=== PATIENT | female | born 1950 | race Caucasian/White ===

== ENCOUNTER 2022-12-24 07:16 | Inpatient (IN) | payer OTHER ==
[2022-12-24] VITALS (8 sets, daily range): BP systolic 149; BP diastolic 84; PULSE 64–86; RESP 18–24; TEMP 97.7; O2SAT 90–97
[~2022-12-24] VITALS: Ht 157.5 cm; Wt 57.2 kg
[2022-12-24] MEDS ORDERED: DexAMETHasone SOD PHOS 10MG/1ML VIAL INJ IV ONE (07:30)
[2022-12-24] MEDS ORDERED: ALBUTEROL SULF 2.5 MG/0.5ML(0.5%) NEB SOLN NEB ONE (07:45)
[2022-12-24 07:50] LABS: Basophils # (auto) 0 10 ^3/uL (0-0.2); Basophils % (auto) 0.5 % (0.0-2.0); Eosinophils # (auto) 0.1 10 ^3/uL (0-0.8); Eosinophils % (auto) 0.9 % (0.0-7.0); Hematocrit 42.8 % (36.0-46.0); Hemoglobin 14.5 g/dL (12.2-16.2); Lymphocytes # (auto) 1.4 10 ^3/uL (0.4-5.4); Mean Corpuscular Hemoglobin 34.4 pg (28.0-32.0); Mean Corpuscular Hgb Conc. 33.9 g/dL (32.0-36.0); Mean Corpuscular Volume 101.5 fL (80.0-100.0); Monocytes # (auto) 0.6 10 ^3/uL (0-1.3); Monocytes % (auto) 6.1 % (0.0-12.0); Neutrophils # (auto) 7.8 10 ^3/uL (1.6-8.6); Neutrophils % (auto) 78.5 % (37.0-80.0); Nucleated Red Blood Cells % 0.2 %; Red Blood Cells 4.22 10^6/uL (4.0-5.20); Red Cell Distribution Width 15.6 % (11.8-14.3); White Blood Cell 9.9 10^3/uL (4.4-10.8)
[2022-12-24 08:06] LABS: INR 0.99 (0.9-1.15); Partial Thromboplastin Time 24.9 SEC (24.5-34.5)
[2022-12-24 08:11] LABS: Albumin 3.5 g/dL (3.4-5.0); Calcium 8.7 mg/dL (8.5-10.1)
[2022-12-24 08:15] LABS: BUN/Creatinine Ratio 15.8 (10.0-20.0); Bilirubin, Total 0.4 mg/dL (0.2-1.0); Total Protein 6.7 g/dL (6.4-8.2)
[2022-12-24] MEDS ORDERED: ACETAMINOPHEN 325 MG TAB PO PRN (13:30)
[2022-12-24] MEDS ORDERED: ONDANSETRON HCL 4 MG/2 ML VIAL IV PRN (13:30)
[2022-12-24] MEDS: HYDROcodone-ACET 5/325MG TAB PO PRN (13:58)
[2022-12-24] MEDS: DexAMETHasone SOD PHOS 10MG/1ML VIAL INJ IV SCH ×2 (14:04→23:02)
[2022-12-24] MEDS: ALBUTEROL SULF 2.5 MG/0.5ML(0.5%) NEB SOLN NEB SCH ×3 (14:15→21:38)
[2022-12-24] MEDS: IPRATROPIUM BROM 0.5 MG/2.5ML INH SOL NEB SCH ×3 (14:15→21:38)
[2022-12-24] MEDS: MORPHINE SULFATE INJ 2 MG/ml SYRG IV PRN (20:53)
[2022-12-25] VITALS (19 sets, daily range): BP systolic 139–155; BP diastolic 70–86; PULSE 67–80; RESP 16–19; TEMP 36.8; O2SAT 92–98
[2022-12-25] MEDS: DexAMETHasone SOD PHOS 10MG/1ML VIAL INJ IV SCH ×3 (06:01→21:47)
[2022-12-25 06:12] LABS: Basophils # (auto) 0 10 ^3/uL (0-0.2); Basophils % (auto) 0.1 % (0.0-2.0); Eosinophils # (auto) 0 10 ^3/uL (0-0.8); Lymphocytes # (auto) 0.7 10 ^3/uL (0.4-5.4); Monocytes # (auto) 0.5 10 ^3/uL (0-1.3); Neutrophils % (auto) 86.7 % (37.0-80.0)
[2022-12-25] MEDS: IPRATROPIUM BROM 0.5 MG/2.5ML INH SOL NEB SCH ×5 (06:13→22:21)
[2022-12-25] MEDS: ALBUTEROL SULF 2.5 MG/0.5ML(0.5%) NEB SOLN NEB SCH ×5 (06:13→22:21)
[2022-12-25 06:15] LABS: Hematocrit 41.1 % (36.0-46.0); Hemoglobin 14.1 g/dL (12.2-16.2); Lymphocytes % (auto) 7.6 % (10.0-50.0); Mean Corpuscular Hemoglobin 34.7 pg (28.0-32.0); Mean Corpuscular Hgb Conc. 34.2 g/dL (32.0-36.0); Mean Corpuscular Volume 101.4 fL (80.0-100.0); Monocytes % (auto) 5.6 % (0.0-12.0); Neutrophils # (auto) 7.9 10 ^3/uL (1.6-8.6); Nucleated Red Blood Cells % 0.2 %; Red Blood Cells 4.05 10^6/uL (4.0-5.20); Red Cell Distribution Width 14.9 % (11.8-14.3); White Blood Cell 9.1 10^3/uL (4.4-10.8)
[2022-12-25] MEDS: ENOXAPARIN SOD 40 MG/0.4 ML SYRINGE SC SCH (09:54)
[2022-12-25] MEDS: HYDROcodone-ACET 5/325MG TAB PO PRN (12:59)
[2022-12-25] MEDS: MORPHINE SULFATE INJ 2 MG/ml SYRG IV PRN (21:48)
[2022-12-26] VITALS (9 sets, daily range): BP systolic 126–160; BP diastolic 57–86; PULSE 68–80; RESP 16–20; TEMP 97.6–97.7; O2SAT 93–99
[2022-12-26] MEDS ORDERED: PNEUMOCOCCAL VACC POLYS 25 MCG/0.5 ML VIAL IM ONE (03:30)
[2022-12-26] MEDS: DexAMETHasone SOD PHOS 10MG/1ML VIAL INJ IV SCH (05:37)
[2022-12-26] MEDS ORDERED: PANT40TA2 PO (05:44)
[2022-12-26] MEDS ORDERED: PROP60CA34 PO (05:44)
[2022-12-26] MEDS ORDERED: ATOR10TA52 PO (05:45)
[2022-12-26] MEDS ORDERED: FLUO60TA7 PO (05:45)
[2022-12-26] MEDS ORDERED: hydrALAZINE HCL 20 MG/ML VL IV ONE (06:00)
[2022-12-26] MEDS: ALBUTEROL SULF 2.5 MG/0.5ML(0.5%) NEB SOLN NEB SCH ×2 (07:03→10:30)
[2022-12-26] MEDS: IPRATROPIUM BROM 0.5 MG/2.5ML INH SOL NEB SCH ×2 (07:03→10:30)
[2022-12-26] MEDS: ENOXAPARIN SOD 40 MG/0.4 ML SYRINGE SC SCH (10:05)
== END 2022-12-26 12:52 | disposition home health service (06) | DRG 189 ==
LOC: EDBD 07:16 → ER 07:16 → OVERFLOW 13:33 → WEST WING 22:00
PROVIDERS: ADMIT Internal Medicine; ATTEND Internal Medicine
DX: J96.00 Acute respiratory failure, unspecified whether with hypoxia or hypercapnia (principal); J44.1 Chronic obstructive pulmonary disease with (acute) exacerbation; I10 Essential (primary) hypertension; F17.210 Nicotine dependence, cigarettes, uncomplicated; E78.5 Hyperlipidemia, unspecified; Z23 Encounter for immunization
CPT/HCPCS: 36415; 71045; 80053; 83880; 84484; 85025; 85610; 85730; 93005; 94640; 96374; 96375; 99291; G0378; J1100; J2405

== ENCOUNTER 2024-09-10 15:04 | Inpatient (IN) | payer OTHER ==
[~2024-09-10] VITALS: Ht 160 cm; Wt 65.4 kg
[~2024-09-10 15:04] MED LIST: ATOR10TA52 PO; FLUO60TA7 PO; PANT40TA2 PO; PROP60CA34 PO
--- NOTE | 2024-09-10 15:17 | ED.PDOC ---
GI ASSESSMENT HPI Comments 74-year-old female brought in by EMS presents with a chief complaint of GI bleed bleeding x 2 days. Patient mentions that her stool is black/red in color. And her vomit also had some black reddish discoloration. Patient denies using blood thinners. Patient is also reporting some nausea and vomiting, but patient is not actively vomiting at this time. Denies any diarrhea or abdominal pain. PMHx: COPD, HLD, HTN PSHx: Hip Surgery x 3 SHx: Denies HPI: Poor Historian. REVIEW OF SYSTEMS: CONSTITUTIONAL: Denies acute: fever, diaphoresis, chills, generalized weakness. HEAD: Denies acute: headache, photophobia Eyes: Denies acute: Double vision, vision loss, eye pain, eye discharge. EARS: Denies acute: tinnitus, hearing loss, ear discharge, ear pain, THROAT: Denies acute: sore throat, swelling, difficulty swallowing , pain with swallowing, change in voice. NECK: Denies acute: neck pain, neck swelling, stiff neck. HEART: Denies acute : chest pain, palpitations, LUNGS: Denies acute: SOB, wheezing, cough, hemoptysis ABDOMEN: Denies acute: abdominal pain, diarrhea, melena , hematemesis, hematochezia SKIN: Denies acute: rash, redness, lesions, itchiness. EXTREMITIES: Denies acute: calf pain, numbness, tingling, weakness, denies pain in extremity. Denies acute: Low back pain. Neuro: Denies acute: focal neurological deficit, motor or sensory focal neurological deficit, tremors, seizure like activity, confusion, dizziness, change in mental status, loss of bowel or bladder function, cauda equina like symptoms. : Denies acute: dysuria, hematuria, flank pain, increase in urinary frequency. PSYCH: Denies acute: hallucination, suicidal ideation, homicidal ideation. FEMALE: Denies acute: abnormal vaginal bleeding, foul odor, unusual discharge. PHYSICAL EXAM: General: no acute distress, awake and alert. Head: normocephalic, atraumatic. Neck: supple, trachea is midline, no swelling. Throat: Normal phonation. Eyes:, no erythema, no purulent discharge, no proptosis, no icterus. Heart: regular rate, regular rhythm, no significant murmur appreciated. Lungs: no apparent respiratory distress, Able to speak in full sentences. No wheezing, no rhonchi, no crackles. No stridors Clear to auscultation bilaterally. Abdomen: non tender to palpation, non distended, soft, no guarding, no rebound, + bowel sounds. Neuro: Awake, Alert, oriented to name, self, situation, follows commands GCS=15. Speech is normal. Skin: no petechia, no purpura, no cyanosis, non-pale, not jaundice. Lower extremities: --trace bilateral - Pitting edema no deformity, no focal swelling, no calf TTP. Makes eye contact. moves all four extremities. Face: no apparent facial droop. ED COURSE: Chief Complaint: Nausea/Vomiting Time Seen by MD: 15:07 Primary Care Provider: BARBIE ESCALANTE Reviewed Notes: Nurses Notes, Medications, Allergies Allergies: Coded Allergies: NO KNOWN ALLERGIES (Unverified , 12/24/22) Home Meds Reported Medications Fluoxetine HCl (Fluoxetine) 60 Mg Tab, PO, TAB 12/26/22 Atorvastatin Calcium (ATORVASTATIN CALCIUM) 10 Mg Tab, PO DAILY, #30 TAB 5 Refills 12/26/22 Pantoprazole Sodium Sesquihydr (Protonix) 40 Mg Tab, 40 MG PO DAILY, #30 TAB 12/26/22 Propranolol Hcl (Inderal La) 60 Mg Cap, 1 CAP PO DAILY, #90 CAP 1 Refill 12/26/22 Information Source: Patient Mode of Arrival: EMS Timing: Days Duration: Since onset Past Medical History PAST MEDICAL HISTORY: COPD, High Lipids, HTN Surgical History (Other): 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 Was a procedure done?: No GI differential Dx Differential Diagnosis: Other (Diverticulitis, colitis, fistula, neoplasm, hemorrhoids, anal fissures, constipation, Crohn's disease, ulcerative colitis, peptic ulcer disease, ) X-Ray, Labs, Meds, VS Vital Signs Date Time Temp Pulse Resp B/P (MAP) Pulse Ox O2 Delivery O2 Flow Rate FiO2 09/10/24 17:48 98.8 108 16 155/96 (115) 96 98.8 09/10/24 15:55 Room Air* 0 21 09/10/24 15:11 97 09/10/24 15:10 98.0 100 16 123/90 (101) 100 98.0 Lab Test 09/10/24 18:00 09/10/24 17:39 09/10/24 15:27 Range/Units Urine Color Light-yellow Yellow Urine Clarity Clear Clear Urine pH 6.5 5.0-9.0 Urine Specific [place] > 1.050 H 1.001-1.035 Urine Protein Trace H Negative Urine Ketones Trace Negative Urine Blood Negative Negative /uL Urine Nitrite Negative Negative Urine Bilirubin Negative Negative Urine Urobilinogen Normal Negative mg/dL Urine Leukocyte Esterase Negative Negative /uL Urine RBC 3 0 - 4 /hpf Urine Microscopic WBC 1 0-5 /HPF Urine Squamous Epithelial Cells Few <5 /hpf Urine Bacteria None seen None Seen /hpf Urine Glucose Normal Normal mg/dL Troponin I High Sensitivity 4 3 L </=34 ng/L White Blood Count 11.4 H 4.4-10.8 10^3/uL Red Blood Count 4.13 4.0-5.20 10^6/uL Hemoglobin 12.7 12.2-16.2 g/dL Hematocrit 38.7 36.0-46.0 % Mean Corpuscular Volume 93.7 80.0-100.0 fL Mean Corpuscular Hemoglobin 30.7 28.0-32.0 pg Mean Corpuscular Hemoglobin Concent 32.7 32.0-36.0 g/dL Red Cell Distribution Width 14.9 H 11.8-14.3 % Platelet Count 283 140-450 10^3/uL Mean Platelet Volume 7.9 6.9-10.8 fL Neutrophils (%) (Auto) 82.0 H 37.0-80.0 % Lymphocytes (%) (Auto) 11.0 10.0-50.0 % Monocytes (%) (Auto) 6.9 0.0-12.0 % Eosinophils (%) (Auto) 0.0 0.0-7.0 % Basophils (%) (Auto) 0.1 0.0-2.0 % Neutrophils # (Auto) 9.3 H 1.6-8.6 10 ^3/uL Lymphocytes # (Auto) 1.2 0.4-5.4 10 ^3/uL Monocytes # (Auto) 0.8 0-1.3 10 ^3/uL Eosinophils # (Auto) 0 0-0.8 10 ^3/uL Basophils # (Auto) 0 0-0.2 10 ^3/uL Nucleated Red Blood Cells 0.0 % Prothrombin Time 11.2 9.3-11.8 sec Prothrombin Time INR 1.06 0.9-1.15 Activated Partial Thromboplast Time 26.2 24.5-34.5 SEC Sodium Level 141 136-145 mmol/L Potassium Level 3.5 3.5-5.1 mmol/L Chloride Level 105 98-107 mmol/L Carbon Dioxide Level 23 20-31 mmol/L Anion Gap 13 5-15 Blood Urea Nitrogen 44 H 9-23 mg/dL Creatinine 0.77 0.550-1.02 mg/dL Glomerular Filtration Rate Calc 81 >90 mL/min BUN/Creatinine Ratio 57.1 H 10.0-20.0 Serum Glucose 135 H 74-106 mg/dL Lactic Acid Level 1.7 0.4-2.0 mmol/L Calcium Level 9.5 8.7-10.4 mg/dL Total Bilirubin 0.3 0.2-1.0 mg/dL Aspartate Amino Transferase (AST) 14 13-40 U/L Alanine Aminotransferase (ALT) 20 7-40 U/L Alkaline Phosphatase 81 46-116 U/L Total Protein 6.3 5.7-8.2 g/dL Albumin 4.3 3.2-4.8 g/dL Current Medications Medications (Trade) Dose Ordered Sig/Ambrose Route Start Time Stop Time Status Last Admin Pantoprazole Sodium (Protonix) 40 mg ONCE ONCE IV 09/10/24 15:30 09/10/24 15:31 DC 09/10/24 16:00 Sodium Chloride 1,000 ml @ 1,000 mls/hr Q1H ONCE IV 09/10/24 15:30 09/10/24 16:29 DC 09/10/24 16:00 Ondansetron HCl (Zofran) 8 mg ONCE ONCE IV 09/10/24 16:45 09/10/24 16:46 DC 09/10/24 17:52 PATIENT: YVES SIMONST: [id number]: [id number] : 1950 LOC: ER ROOM / BED: / AGE / SEX: 74 / F ADM STATUS: REG ER SERVICE 1527 ORDERING PHYSICIAN: ANDREY PIZANO DO PROCEDURE(s): ABPLIV - CT AB PEL WITH IV CON ONLY REASON: GI BLEED; N/V ORDER NUMBER(s): [id number], ACCESSION NUMBER(s): [id number] Exam: CT CT AB PEL WITH IV CON ONLY History: GI BLEED; N/V Comparison Study: None available TECHNIQUE: A digital roughener image was obtained. During the uneventful, intr avenous administration of contrast material, multislice data acquisition was obtained through the abdomen and pelvis. The data set was subsequently reconstructed into axial images. Images reviewed on a wrist examination is an examination of axial and multiplanar reformations using a variety of window levels and settings. RADIATION DOSE: DLP 500.96 mGy.cm; CTDI vol 10.36 mGy. Findings: Lungs: The lung bases are clear. Heart: No cardiomegaly or pericardial effusion. Liver: Unremarkable. Gallbladder: Unremarkable. Spleen: Unremarkable Pancreas: Unremarkable Adrenals: 2.0 x 1.2 cm right adrenal nodule. Kidneys: Subcentimeter hypodense lesions in the kidney which are too small to characterize. Left renal scarring. GI tract: Psfggifq-uk-zvqpc hiatal hernia. Unremarkable : Unremarkable. Vasculature: Mild aortoiliac atherosclerosis. Lymphadenopathy: Absent Peritoneum: No ascites Musculoskeletal: Severe multilevel degenerative changes of the thoracolumbar spine. Severe compression fracture of T11. Moderate compression fractures of T12, L1 and L4. No retropulsion. Right total hip arthroplasty. Soft tissues: Unremarkable Impression: 1. No acute abdominopelvic abnormalities. 2. No definite evidence of GI hemorrhage. Consider further evaluation with a nuclear medicine GI bleeding scan. 3. 2.0 x 1.2 cm right adrenal nodule. Consider further evaluation as an adrenal protocol CT, as clinically indicated. 4. Other non-acute, ancillary findings as described above. ATED BY: MAXINE MENDOZA DO DICTATED DATE/TIME: 09/10/241801 SIGNED BY: MAXINE MENDOZA DO SIGNED DATE/TIME: 09/10/241801 PATIENT: OMER SIMONS ACCT: [id number] UNIT: [id number] : 1950 LOC: OVERFLOW ROOM / BED: [address] [place] [address] / AGE / SEX: 74 / F ADM STATUS: ADM IN SERVICE 47 ORDERING PHYSICIAN: VIVIANA TINAJERO VP OUTCOMES PROCEDURE(s): CXRP - CHEST PORTABLE REASON: admit ORDER NUMBER(s): [id number], ACCESSION NUMBER(s): [id number] EXAM: XY CHEST PORTABLE TECHNIQUE: Single frontal chest radiograph CLINICAL HISTORY: admit COMPARISON: XY CHEST PORTABLE on DOS: 12/24/22 Findings/Impression: Frontal chest radiograph demonstrates no acute osseous or superficial soft tiss ue abnormalities. The trachea is midline. The cardiac silhouette and mediastinum are within normal limits. No pneumothorax, pleural effusions, or consolidations. Moderate hiatal hernia. ATED BY: MAXINE MENDOZA DO DICTATED DATE/TIME: 09/10/242017 SIGNED BY: MAXINE MENDOZA DO SIGNED DATE/TIME: 09/10/242017 Time of 1ST Reevaluation: 15:37 Reevaluation 1ST: Unchanged Time of 2ND Reevaluation: 18:00 (The case was discussed with the admitting team (HPI, physical exam, labs and diagnostic tests that were available at the time of disposition, ED course, treatment plan) on the phone. They agreed to admit the patient to their service and assume care of this patient from this point forward. .) Patient Education/Counseling: Diagnosis, Treatment Family Education/Counseling: No Family Present Departure 1 Departure Time of Disposition: 16:02 Impression: Primary Impression: GI bleed Qualified Codes: K92.0 - Hematemesis Additional Impressions: Nausea & vomiting Qualified Codes: K92.0 - Hematemesis Hiatal hernia Disposition: ADMITTED INPATIENT Admit to: Tele Condition: Guarded Discharged With: Self Critical Care Note Critical Care Time?: No I personally scribed for ANDREY PIZANO DO ([email or web address]) on 09/10/24 at 15:16. Electronically submitted by Derick Mccormick ([email or web address]). I personally scribed for ANDREY PIZANO DO ([email or web address]) on 09/10/24 at 15:20. Electronically submitted by Derick Mccormick ([email or web address]). I personally scribed for ANDREY PIZANO DO ([email or web address]) on 09/10/24 at 15:28. Electronically submitted by Derick Mccormick ([email or web address]). I personally scribed for ANDREY PIZANO DO ([email or web address]) on 09/10/24 at 20:23. Electronically submitted by Derick Mccormick ([email or web address]). I personally scribed for ANDREY PIZANO DO ([email or web address]) on 09/10/24 at 20:24. Electronically submitted by Derick Mccormick ([email or web address]). ANDREY PIZANO DO Sep 10, 2024 15:16
[2024-09-10 15:54] LABS: Basophils # (auto) 0 10 ^3/uL (0-0.2); Basophils % (auto) 0.1 % (0.0-2.0); Eosinophils # (auto) 0 10 ^3/uL (0-0.8); Hematocrit 38.7 % (36.0-46.0); Hemoglobin 12.7 g/dL (12.2-16.2); Lymphocytes # (auto) 1.2 10 ^3/uL (0.4-5.4); Mean Corpuscular Hemoglobin 30.7 pg (28.0-32.0); Mean Corpuscular Hgb Conc. 32.7 g/dL (32.0-36.0); Mean Corpuscular Volume 93.7 fL (80.0-100.0); Monocytes # (auto) 0.8 10 ^3/uL (0-1.3); Monocytes % (auto) 6.9 % (0.0-12.0); Neutrophils # (auto) 9.3 10 ^3/uL (1.6-8.6); Platelet Count (auto) 283 10^3/uL (140-450); Red Blood Cells 4.13 10^6/uL (4.0-5.20); Red Cell Distribution Width 14.9 % (11.8-14.3); White Blood Cell 11.4 10^3/uL (4.4-10.8)
[2024-09-10] MEDS: SODIUM CHLORIDE 0.9% 1,000 ML IV ONE (16:00)
[2024-09-10] MEDS: PANTOPRAZOLE 40 MG/10 ML VIAL INJ IV ONE (16:00)
[2024-09-10 16:13] LABS: Alanine Aminotransferase 20 U/L (7-40); Albumin 4.3 g/dL (3.2-4.8); Alkaline Phosphatase 81 U/L (46-116); Anion Gap 13 (5-15); Aspartate Aminotransferase 14 U/L (13-40); BUN/Creatinine Ratio 57.1 (10.0-20.0); Calcium 9.5 mg/dL (8.7-10.4); Carbon Dioxide 23 mmol/L (20-31); Chloride 105 mmol/L (98-107); Sodium 141 mmol/L (136-145); Total Protein 6.3 g/dL (5.7-8.2)
[2024-09-10 16:14] LABS: Bilirubin, Total 0.3 mg/dL (0.2-1.0)
[2024-09-10 16:15] LABS: Blood Urea Nitrogen 44 mg/dL (9-23); Glucose 135 mg/dL (74-106); Potassium 3.5 mmol/L (3.5-5.1)
[2024-09-10 16:27] LABS: INR 1.06 (0.9-1.15); Partial Thromboplastin Time 26.2 SEC (24.5-34.5); Prothrombin Time 11.2 sec (9.3-11.8)
[2024-09-10] MEDS: IOHEXOL 300 MG/ML 100ML BOTTLE IJ ONE (17:18)
[2024-09-10] MEDS: ONDANSETRON HCL 4 MG/2 ML VIAL IV ONE (17:52)
--- NOTE | 2024-09-10 18:04 | DVH ---
Exam: CT CT AB PEL WITH IV CON ONLY History: GI BLEED; N/V Comparison Study: None available TECHNIQUE: A digital machine binding folder image was obtained. During the uneventful, intravenous administration of c ontrast material, multislice data acquisition was obtained through the abdomen and pelvis. The data s et was subsequently reconstructed into axial images. Images reviewed on a wrist examination is an exa mination of axial and multiplanar reformations using a variety of window levels and settings. RADIATION DOSE: DLP 500.96 mGy.cm; CTDI vol 10.36 mGy. Findings: Lungs: The lung bases are clear. Heart: No cardiomegaly or pericardial effusion. Liver: Unremarkable. Gallbladder: Unremarkable. Spleen: Unremarkable Pancreas: Unremarkable Adrenals: 2.0 x 1.2 cm right adrenal nodule. Kidneys: Subcentimeter hypodense lesions in the kidney which are too small to characterize. Left jessica l scarring. GI tract: Sajjwfie-vq-osqnl hiatal hernia. Unremarkable : Unremarkable. Vasculature: Mild aortoiliac atherosclerosis. Lymphadenopathy: Absent Peritoneum: No ascites Musculoskeletal: Severe multilevel degenerative changes of the thoracolumbar spine. Severe compressi on fracture of T11. Moderate compression fractures of T12, L1 and L4. No retropulsion. Right total hi p arthroplasty. Soft tissues: Unremarkable Impression: 1. No acute abdominopelvic abnormalities. 2. No definite evidence of GI hemorrhage. Consider further evaluation with a nuclear medicine GI ble eding scan. 3. 2.0 x 1.2 cm right adrenal nodule. Consider further evaluation as an adrenal protocol CT, as clin ically indicated. 4. Other non-acute, ancillary findings as described above.
[2024-09-10 18:40] LABS: Urine Bacteria None Seen /hpf (None Seen)
[2024-09-10 18:52] LABS: Urine Blood Negative /uL (Negative); Urine Clarity Clear (Clear); Urine Color Light-Yellow (Yellow); Urine Protein, UAD TRACE (Negative); Urine Squamous Epithelial Cell FEW /hpf (<5); Urine Urobilinogen Normal (Negative); Urine WBC 1 /HPF (0-5); Urine pH 6.5 (5.0-9.0)
[2024-09-10 18:56] LABS: Urine Specific Gravity > 1.050 (1.001-1.035)
--- NOTE | 2024-09-10 20:20 | DVH ---
EXAM: XY CHEST PORTABLE TECHNIQUE: Single frontal chest radiograph CLINICAL HISTORY: admit COMPARISON: XY CHEST PORTABLE on DOS: 12/24/22 Findings/Impression: Frontal chest radiograph demonstrates no acute osseous or superficial soft tissue abnormalities. The trachea is midline. The cardiac silhouette and mediastinum are within normal limits. No pneumothorax, pleural effusions, or consolidations. Moderate hiatal hernia.
[2024-09-10] MEDS: PANTOPRAZOLE 40mg/50ML NS AE 50 ML IV SCH (20:35)
[2024-09-10] MEDS: SODIUM CHLORIDE 0.9% 1,000 ML IV SCH (20:35)
[2024-09-10] MEDS: ONDANSETRON HCL 4 MG/2 ML VIAL IV PRN (20:35)
[2024-09-10 20:43] LABS: Hematocrit 37.6 % (36.0-46.0); Hemoglobin 12.3 g/dL (12.2-16.2)
[2024-09-10 21:51] VITALS: BP 149/83; PULSE 104; RESP 16; TEMP 97.7; O2SAT 94
[2024-09-10] MEDS ORDERED: PROP60CA34 PO (22:25)
[2024-09-10] MEDS ORDERED: FLUT1AER17 IN (22:25)
[2024-09-10] MEDS ORDERED: SIMV10TA20 PO (22:25)
[2024-09-10 23:23] VITALS: BP 149/83; PULSE 104; RESP 18; TEMP 97.7; O2SAT 94
[2024-09-11] VITALS (7 sets, daily range): BP systolic 125–159; BP diastolic 53–76; PULSE 63–73; RESP 16–21; TEMP 97.6–98.5; O2SAT 92–96
[2024-09-11 00:39] LABS: Hematocrit 30.9 % (36.0-46.0); Hemoglobin 10.6 g/dL (12.2-16.2)
--- NOTE | 2024-09-11 00:44 | DVHHP2 ---
Admitting Diagnosis: GI bleed History of Present Illness History Source: Patient Exam Limitations: No limitations HPI Mrs. Kailey Robledo is a 74-year-old female with a history of COPD, HLD, hypertension who presents with a chief complaint of GI bleed bleeding x 2 days. Patient mentions that her stool is black/red in color. And her vomit also had some black reddish discoloration. Patient denies using blood thinners. Patient reports loose dark tarry stools x 2 days. Denies any diarrhea , nausea, vomiting or abdominal pain at this time. Home Meds Reported Medications Gxjetmbcjci-Wvbxmzheazbt-Osyhp (Trelegy Ellipta 200-62.5-25 Mcg/INH) 1 Aer Aer, 1 AER IN DAILY, AER 09/10/24 Simvastatin (Simvastatin) 10 Mg Tab, 10 MG PO DAILY for 30 Days, MG 09/10/24 Propranolol Hcl (Inderal La) 60 Mg Cap, 20 MG PO BID, CAP 09/10/24 Fluoxetine HCl (Fluoxetine) 60 Mg Tab, PO, TAB 12/26/22 Discontinued Reported Medications Atorvastatin Calcium (ATORVASTATIN CALCIUM) 10 Mg Tab, PO DAILY, #30 TAB 5 Refills 12/26/22 Pantoprazole Sodium Sesquihydr (Protonix) 40 Mg Tab, 40 MG PO DAILY, #30 TAB 12/26/22 Propranolol Hcl (Inderal La) 60 Mg Cap, 1 CAP PO DAILY, #90 CAP 1 Refill 12/26/22 Past Medical History Cardiac: HTN, Hyperlipidemia Pulmonary: COPD Central Nervous System: No pertinent Hx GI: No pertinent Hx Hemotology/Oncology: No pertinent Hx Hepatobiliary: No pertinent Hx Psychiatric: No pertinent Hx Musculoskeletal: No pertinent Hx Rheumotologic: No pertinent Hx Infectious Disease: No peritnent Hx ENT: No pertinent Hx Renal/: No pertinent Hx Endocrine: No pertinent Hx Dermatology: No pertinent Hx Patient Family History: Patient reports no known family medical history. Smoker: No Hx (Negative) Alocohol: None Drugs: None Lives with: With family Domestic Violence: Neg Review of Systems Constitutional: No symptom reported Ears, Nose, & Throat: No symptom reported Eyes: No symptom reported Pulmonary/Respiratory: No symptom reported Cardiovascular: No symptom reported Gastrointestinal: Melena Genitourinary: No symptom reported Musculoskeletal: No symptom reported Skin: No symptom reported Psychiatric: No symptom reported Endocrine: No symptom reported Hemotologic/Lymphatic: No symptom reported H&P Exam Vital Signs Vital Signs Date Time Temp Pulse Resp B/P (MAP) Pulse Ox O2 Delivery O2 Flow Rate FiO2 09/10/24 23:23 104 18 94 Room Air* 0 21 09/10/24 23:23 97.7 149/83 (105) 97.7 General Appeara: Well developed, Well nourished, Normal Appearance Head Exam: Normal inspection Neck Exam: Normal inspection, Non-tender, Normal alignment Eye Exam: bilateral eye Normal inspection, bilateral eye PERRL, bilateral eye EOMI Ear Exam: bilateral ear Auricle normal Nasal Exam: Normal inspection Mouth: Normal Inspection Pulmonary/Respiratory: Normal inspection, Normal breath sounds, Chest non- tender, Lungs clear Cardiovascular/Chest: Normal inspection, Regular rate, Normal Rhythm Peripheral Pulses: 2+ dorsalis pedis (R), 2+ dorsalis pedis (L), 2+ Radial (R), 2+ Radial (L) Abdominal Exam: Normal bowel sounds, Soft, No tenderness Rectal Exam: Deferred 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: Normal hearing, Normal speech, PERRL Neuro/Mental St: Alert, Oriented Appearance: Appropriate appearance, Appropriate insight Eye contact/ Speech: Cooperative, Good eye contact, Normal speech Thoughts/Psych: Normal thought pattern Skin Exam: Normal inspection, Normal color, Warm/dry Labs/Xrays Labs Test 09/11/24 00:25 09/10/24 18:00 09/10/24 17:39 09/10/24 15:27 Range/Units Urine Color Light-yellow Yellow Urine Clarity Clear Clear Urine pH 6.5 5.0-9.0 Urine Specific [place] > 1.050 H 1.001-1.035 Urine Protein Trace H Negative Urine Ketones Trace Negative Urine Blood Negative Negative /uL Urine Nitrite Negative Negative Urine Bilirubin Negative Negative Urine Urobilinogen Normal Negative mg/dL Urine Leukocyte Esterase Negative Negative /uL Urine RBC 3 0 - 4 /hpf Urine Microscopic WBC 1 0-5 /HPF Urine Squamous Epithelial Cells Few <5 /hpf Urine Bacteria None seen None Seen /hpf Urine Glucose Normal Normal mg/dL Troponin I High Sensitivity 4 </=34 ng/L White Blood Count 11.4 H 4.4-10.8 10^3/uL Red Blood Count 4.13 4.0-5.20 10^6/uL Mean Corpuscular Volume 93.7 80.0-100.0 fL Mean Corpuscular Hemoglobin 30.7 28.0-32.0 pg Mean Corpuscular Hemoglobin Concent 32.7 32.0-36.0 g/dL Red Cell Distribution Width 14.9 H 11.8-14.3 % Platelet Count 283 140-450 10^3/uL Mean Platelet Volume 7.9 6.9-10.8 fL Neutrophils (%) (Auto) 82.0 H 37.0-80.0 % Lymphocytes (%) (Auto) 11.0 10.0-50.0 % Monocytes (%) (Auto) 6.9 0.0-12.0 % Eosinophils (%) (Auto) 0.0 0.0-7.0 % Basophils (%) (Auto) 0.1 0.0-2.0 % Neutrophils # (Auto) 9.3 H 1.6-8.6 10 ^3/uL Lymphocytes # (Auto) 1.2 0.4-5.4 10 ^3/uL Monocytes # (Auto) 0.8 0-1.3 10 ^3/uL Eosinophils # (Auto) 0 0-0.8 10 ^3/uL Basophils # (Auto) 0 0-0.2 10 ^3/uL Nucleated Red Blood Cells 0.0 % Prothrombin Time 11.2 9.3-11.8 sec Prothrombin Time INR 1.06 0.9-1.15 Activated Partial Thromboplast Time 26.2 24.5-34.5 SEC Sodium Level 141 136-145 mmol/L Potassium Level 3.5 3.5-5.1 mmol/L Chloride Level 105 98-107 mmol/L Carbon Dioxide Level 23 20-31 mmol/L Anion Gap 13 5-15 Blood Urea Nitrogen 44 H 9-23 mg/dL Creatinine 0.77 0.550-1.02 mg/dL Glomerular Filtration Rate Calc 81 >90 mL/min BUN/Creatinine Ratio 57.1 H 10.0-20.0 Serum Glucose 135 H 74-106 mg/dL Lactic Acid Level 1.7 0.4-2.0 mmol/L Calcium Level 9.5 8.7-10.4 mg/dL Total Bilirubin 0.3 0.2-1.0 mg/dL Aspartate Amino Transferase (AST) 14 13-40 U/L Alanine Aminotransferase (ALT) 20 7-40 U/L Alkaline Phosphatase 81 46-116 U/L Total Protein 6.3 5.7-8.2 g/dL Albumin 4.3 3.2-4.8 g/dL Assessment/Plan Problem List: (1) GI bleed Plan This is a 74 yo female with a past known history of COPD, hyperlipidemia, hypertension, who presents to the hospital with dark tarry stools x 2 days. 1. GI Bleed 2. Hypertension 3. COPD without exacerbation Plan: Admit Telemetry unit Gastroenterology consultation Protonix drip IV fluids NPO stool occult blood x2 antiemetics as needed Discussed all above with patient who verbalizes agreement and understanding of care plan. All questions were answered. Discussed assessment and care plan with supervising MD. Plan discussed with: Patient, Other Code Visit Code Visit Total Time (mins): 45 Additional Comments Additional Comments Additional Comments 74-year-old female with a known history of COPD, history of tobacco use disorder 40 pack-year history quit two years ago, hypertension initially presented to the hospital with a black stool as well as hematemesis with a black stuff found to have 1. Acute anemia with suspected GI bleed 2. Black tarry stools rule out upper GI bleed 3. COPD not in exacerbation 4. Previous history of tobacco use disorder -monitor H&H, check stool for occult blood test, GI consultation -continue Protonix drip. VIVIANA TINAJERO Sep 11, 2024 00:44 RACHEL HUDSON MD Sep 11, 2024 15:56
[2024-09-11] MEDS: diphenhdrAMINE HCL 50 MG/1 ML VL IV ONE (00:51)
[2024-09-11 07:55] LABS: Basophils # (auto) 0 10 ^3/uL (0-0.2); Basophils % (auto) 0.1 % (0.0-2.0); Eosinophils # (auto) 0 10 ^3/uL (0-0.8); Hemoglobin 9.9 g/dL (12.2-16.2); Lymphocytes # (auto) 1.2 10 ^3/uL (0.4-5.4); Lymphocytes % (auto) 14.7 % (10.0-50.0); Mean Corpuscular Hemoglobin 32.4 pg (28.0-32.0); Mean Corpuscular Hgb Conc. 34.3 g/dL (32.0-36.0); Mean Corpuscular Volume 94.5 fL (80.0-100.0); Monocytes # (auto) 0.7 10 ^3/uL (0-1.3); Monocytes % (auto) 9.4 % (0.0-12.0); Neutrophils % (auto) 75.8 % (37.0-80.0); Nucleated Red Blood Cells % 0.1 %; Platelet Count (auto) 213 10^3/uL (140-450); Red Blood Cells 3.07 10^6/uL (4.0-5.20); Red Cell Distribution Width 14.8 % (11.8-14.3); White Blood Cell 7.9 10^3/uL (4.4-10.8)
[2024-09-11 08:07] LABS: Sodium 142 mmol/L (136-145)
[2024-09-11 08:08] LABS: Anion Gap 10 (5-15); Calcium 8.7 mg/dL (8.7-10.4); Carbon Dioxide 22 mmol/L (20-31)
[2024-09-11 08:12] LABS: Chloride 110 mmol/L (98-107); Potassium 3.3 mmol/L (3.5-5.1)
[2024-09-11 08:13] LABS: BUN/Creatinine Ratio 36.6 (10.0-20.0); Glucose 104 mg/dL (74-106)
[2024-09-11 08:16] LABS: Blood Urea Nitrogen 26 mg/dL (9-23)
[2024-09-11 12:26] LABS: Hematocrit 29.3 % (36.0-46.0); Hemoglobin 9.8 g/dL (12.2-16.2)
[2024-09-11 18:47] LABS: Hematocrit 30.8 % (36.0-46.0); Hemoglobin 10.1 g/dL (12.2-16.2)
[2024-09-11] MEDS: ATORVASTATIN 20 MG TAB PO SCH (21:13)
[2024-09-11] MEDS: PROPRANOLOL HCL 20 MG TAB PO SCH (21:14)
[2024-09-11] MEDS: traZODone HCL 50 MG TAB PO PRN (21:16)
[2024-09-12] VITALS (7 sets, daily range): BP systolic 106–118; BP diastolic 54–62; PULSE 64–74; RESP 16–19; TEMP 97.6–98; O2SAT 91–93
[2024-09-12 06:40] LABS: Basophils # (auto) 0 10 ^3/uL (0-0.2); Basophils % (auto) 0.2 % (0.0-2.0); Eosinophils # (auto) 0 10 ^3/uL (0-0.8); Eosinophils % (auto) 0.4 % (0.0-7.0); Hematocrit 27.4 % (36.0-46.0); Hemoglobin 9.1 g/dL (12.2-16.2); Lymphocytes % (auto) 14.8 % (10.0-50.0); Mean Corpuscular Hemoglobin 31.6 pg (28.0-32.0); Mean Corpuscular Hgb Conc. 33.1 g/dL (32.0-36.0); Mean Corpuscular Volume 95.2 fL (80.0-100.0); Monocytes # (auto) 0.5 10 ^3/uL (0-1.3); Monocytes % (auto) 7.8 % (0.0-12.0); Neutrophils # (auto) 5.2 10 ^3/uL (1.6-8.6); Neutrophils % (auto) 76.8 % (37.0-80.0); Nucleated Red Blood Cells % 0.1 %; Platelet Count (auto) 186 10^3/uL (140-450); Red Blood Cells 2.88 10^6/uL (4.0-5.20); Red Cell Distribution Width 14.8 % (11.8-14.3); White Blood Cell 6.7 10^3/uL (4.4-10.8)
[2024-09-12 06:48] LABS: Anion Gap 11 (5-15); Sodium 145 mmol/L (136-145)
[2024-09-12 06:52] LABS: Calcium 8.4 mg/dL (8.7-10.4); Carbon Dioxide 19 mmol/L (20-31); Chloride 115 mmol/L (98-107); Potassium 3.4 mmol/L (3.5-5.1)
[2024-09-12 06:54] LABS: BUN/Creatinine Ratio 24.1 (10.0-20.0); Blood Urea Nitrogen 14 mg/dL (9-23)
[2024-09-12 06:55] LABS: Glucose 72 mg/dL (74-106)
--- NOTE | 2024-09-12 14:41 | DVHPN2 ---
Subjective Patient is complaining of some black stool one episode yesterday. Currently hemoglobin is 9.1 as compared to 10.1 yesterday. Patient will be watched closely on tele monitor. 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 Medications Current Medications Medications Dose Ordered Sig/Ambrose Route Start Time Stop Time Status Last Admin Dose Admin Pantoprazole Sodium 50 ml @ 10 mls/hr Q5H IV 09/10/24 19:30 09/12/24 11:03 10 MLS/HR Sodium Chloride 1,000 ml @ 75 mls/hr [id number] IV 09/10/24 19:30 09/12/24 11:03 75 MLS/HR Ondansetron HCl 4 mg Q6HPRN PRN IV 09/10/24 19:30 09/10/24 20:35 4 MG Propranolol HCl 20 mg BID PO 09/11/24 22:00 09/12/24 11:03 20 MG Trazodone HCl 25 mg HS PRN PO 09/11/24 14:45 09/11/24 21:16 25 MG Atorvastatin Calcium 10 mg HS PO 09/11/24 22:00 09/11/24 21:13 10 MG Laboratory Results Laboratory Tests 09/12/24 05:46 Chemistry Test 09/12/24 05:46 Calcium Level 8.4 mg/dL (8.7-10.4) L Urinalysis Test 09/10/24 18:00 Urine Color Light-yellow (Yellow) Urine Clarity Clear (Clear) Urine pH 6.5 (5.0-9.0) Urine Specific [place] > 1.050 (1.001-1.035) Urine Protein Trace (Negative) H Urine Ketones Trace (Negative) Urine Blood Negative /uL (Negative) Urine Nitrite Negative (Negative) Urine Bilirubin Negative (Negative) Urine Urobilinogen Normal mg/dL (Negative) Urine Leukocyte Esterase Negative /uL (Negative) Urine RBC 3 /hpf (0 - 4) Urine Microscopic WBC 1 /HPF (0-5) Urine Squamous Epithelial Cells Few /hpf (<5) Urine Bacteria None seen /hpf (None Seen) Urine Glucose Normal mg/dL (Normal) Assessment/Plan Assessment/Plan 74-year-old female with a known history of COPD, history of tobacco use disorder 40 pack-year history quit two years ago, hypertension initially presented to the hospital with a black stool as well as hematemesis with a black stuff found to have 1. Acute anemia with suspected GI bleed 2. Black tarry stools rule out upper GI bleed 3. COPD not in exacerbation 4. Previous history of tobacco use disorder -IV fluids, IV Protonix drip, NPO , for possible EGD tomorrow. Plan discussed with: Patient My Orders Orders - RACHEL HUDSON MD Procedure Category Date Status Time Propranolol Hcl PHA 09/11/24 In Process Tablet (Inderal 22:00 Trazodone Hcl PHA 09/11/24 In Process (Desyrel) 14:45 Atorvastatin (Lipitor) PHA 09/11/24 In Process 22:00 Basic Metabolic Panel LAB 09/13/24 Verified 04:00 Date of Service: Sep 12, 2024 Billing Provider: RACHEL HUDSON MD Common Visit Codes: NOT BILLABLE RACHEL HUDSON MD Sep 12, 2024 14:41
[2024-09-12] MEDS: POTASSIUM EFFERVESENT TAB 25 MEQ PO ONE (14:57)
--- NOTE | 2024-09-12 15:27 | DVHINCON2 ---
Date of service: Sep 12, [address] Oliveros Reason for Consultation Coffee-ground emesis and melena History of Present Illness Mrs. Kailey Robledo is a 74-year-old female with a history of COPD, HLD, hypertension who presents with a chief complaint of GI bleed bleeding x 2 days. Patient mentions that her stool is black/red in color. And her vomit also had some black reddish discoloration. Patient denies using blood thinners. Patient did recently take some ibuprofen. Patient reports loose dark tarry stools x 2 days. Denies any diarrhea , nausea, vomiting or abdominal pain at this time. Her last endoscopy was over 10 years ago. Her last colonoscopy was about seven years ago which she believes was negative. Patient was seen at bedside and she is resting comfortably. Her bleeding appears to be resolving and her laboratory parameters are improving Past Medical History COPD, HLD, hypertension Past Surgical History Right hip replacement x2 Family History: Cerebrovascular accident (CVA) G8 FATHER Allergies: Coded Allergies: NO KNOWN ALLERGIES (Unverified , 12/24/22) Home Meds Reported Medications Rezzfkwthpa-Tctvdpfxmnfv-Exucp (Trelegy Ellipta 200-62.5-25 Mcg/INH) 1 Aer Aer, 1 AER IN DAILY, AER 09/10/24 Simvastatin (Simvastatin) 10 Mg Tab, 10 MG PO DAILY for 30 Days, MG 09/10/24 Propranolol Hcl (Inderal La) 60 Mg Cap, 20 MG PO BID, CAP 09/10/24 Fluoxetine HCl (Fluoxetine) 60 Mg Tab, PO, TAB 12/26/22 Discontinued Reported Medications Atorvastatin Calcium (ATORVASTATIN CALCIUM) 10 Mg Tab, PO DAILY, #30 TAB 5 Refills 12/26/22 Pantoprazole Sodium Sesquihydr (Protonix) 40 Mg Tab, 40 MG PO DAILY, #30 TAB 12/26/22 Propranolol Hcl (Inderal La) 60 Mg Cap, 1 CAP PO DAILY, #90 CAP 1 Refill 12/26/22 Current Medications Current Medications Medications (Trade) Dose Ordered Sig/Ambrose Route PRN Reason Start Time Stop Time Status Last Admin Propranolol HCl (Inderal Tablet) 20 mg BID PO 09/11/24 22:00 09/12/24 11:03 Atorvastatin Calcium (Lipitor) 10 mg HS PO 09/11/24 22:00 09/11/24 21:13 Vital Signs Vital Signs Date Time Temp Pulse Resp B/P (MAP) Pulse Ox O2 Delivery O2 Flow Rate FiO2 09/12/24 13:00 97.9 64 19 116/57 (76) 92 97.9 09/12/24 08:00 Room Air* 0 21 Physical Exam HEENT pupils are reactive Neck is supple CV is S1-S2 regular rate and rhythm Respiratory diminished breath sounds bases GI positive bowel sound Extremity no edema [employer] no motor deficit Labs/Diagnostic Data Labs Test 09/12/24 05:46 09/11/24 15:22 09/10/24 18:00 09/10/24 17:39 Range/Units White Blood Count 6.7 4.4-10.8 10^3/uL Red Blood Count 2.88 L 4.0-5.20 10^6/uL Hemoglobin 9.1 L 12.2-16.2 g/dL Hematocrit 27.4 #L 36.0-46.0 % Mean Corpuscular Volume 95.2 80.0-100.0 fL Mean Corpuscular Hemoglobin 31.6 28.0-32.0 pg Mean Corpuscular Hemoglobin Concent 33.1 32.0-36.0 g/dL Red Cell Distribution Width 14.8 H 11.8-14.3 % Platelet Count 186 140-450 10^3/uL Mean Platelet Volume 7.8 6.9-10.8 fL Neutrophils (%) (Auto) 76.8 37.0-80.0 % Lymphocytes (%) (Auto) 14.8 10.0-50.0 % Monocytes (%) (Auto) 7.8 0.0-12.0 % Eosinophils (%) (Auto) 0.4 0.0-7.0 % Basophils (%) (Auto) 0.2 0.0-2.0 % Neutrophils # (Auto) 5.2 1.6-8.6 10 ^3/uL Lymphocytes # (Auto) 1.0 0.4-5.4 10 ^3/uL Monocytes # (Auto) 0.5 0-1.3 10 ^3/uL Eosinophils # (Auto) 0 0-0.8 10 ^3/uL Basophils # (Auto) 0 0-0.2 10 ^3/uL Nucleated Red Blood Cells 0.1 % Sodium Level 145 136-145 mmol/L Potassium Level 3.4 L 3.5-5.1 mmol/L Chloride Level 115 H 98-107 mmol/L Carbon Dioxide Level 19 L 20-31 mmol/L Anion Gap 11 5-15 Blood Urea Nitrogen 14 # 9-23 mg/dL Creatinine 0.58 0.550-1.02 mg/dL Glomerular Filtration Rate Calc 95 >90 mL/min BUN/Creatinine Ratio 24.1 H 10.0-20.0 Serum Glucose 72 L 74-106 mg/dL Calcium Level 8.4 L 8.7-10.4 mg/dL Stool Occult Blood Positive Negative Stool Occult Blood Sample #3 Negative Urine Color Light-yellow Yellow Urine Clarity Clear Clear Urine pH 6.5 5.0-9.0 Urine Specific [place] > 1.050 H 1.001-1.035 Urine Protein Trace H Negative Urine Ketones Trace Negative Urine Blood Negative Negative /uL Urine Nitrite Negative Negative Urine Bilirubin Negative Negative Urine Urobilinogen Normal Negative mg/dL Urine Leukocyte Esterase Negative Negative /uL Urine RBC 3 0 - 4 /hpf Urine Microscopic WBC 1 0-5 /HPF Urine Squamous Epithelial Cells Few <5 /hpf Urine Bacteria None seen None Seen /hpf Urine Glucose Normal Normal mg/dL Troponin I High Sensitivity 4 </=34 ng/L Test 09/10/24 15:27 Range/Units Prothrombin Time 11.2 9.3-11.8 sec Prothrombin Time INR 1.06 0.9-1.15 Activated Partial Thromboplast Time 26.2 24.5-34.5 SEC Lactic Acid Level 1.7 0.4-2.0 mmol/L Total Bilirubin 0.3 0.2-1.0 mg/dL Aspartate Amino Transferase (AST) 14 13-40 U/L Alanine Aminotransferase (ALT) 20 7-40 U/L Alkaline Phosphatase 81 46-116 U/L Total Protein 6.3 5.7-8.2 g/dL Albumin 4.3 3.2-4.8 g/dL ABD PELVIC CT SCAN Impression: 1. No acute abdominopelvic abnormalities. 2. No definite evidence of GI hemorrhage. Consider further evaluation with a nuclear medicine GI bleeding scan. 3. 2.0 x 1.2 cm right adrenal nodule. Consider further evaluation as an adrenal protocol CT, as clinically indicated. 4. Other non-acute, ancillary findings as described above. Problems(with codes): (1) Melena (2) Coffee ground emesis (3) Hiatal hernia (4) GI bleed (5) Nausea & vomiting (6) Normocytic anemia Plan/Recommendation Plan Start clear liquid diet advance to full liquid NPO after midnight I will schedule him for an upper endoscopy on 09/13/2024 to which the patient is agreeable Continue Protonix 40 mg IV q.12 hours Patient was counseled about discontinuing ibuprofen and use Tylenol instead Further recommendations after the above Plan discussed with: Patient, Other (Nurse) MASON SEXTON MD Sep 12, 2024 15:27
[2024-09-13] VITALS (8 sets, daily range): BP systolic 100–129; BP diastolic 50–66; PULSE 59–82; RESP 16–18; TEMP 36.2; O2SAT 91–97
[2024-09-13 06:50] LABS: Basophils # (auto) 0 10 ^3/uL (0-0.2); Basophils % (auto) 0.6 % (0.0-2.0); Eosinophils # (auto) 0 10 ^3/uL (0-0.8); Eosinophils % (auto) 0.8 % (0.0-7.0); Hematocrit 27.3 % (36.0-46.0); Lymphocytes # (auto) 1.2 10 ^3/uL (0.4-5.4); Lymphocytes % (auto) 18.7 % (10.0-50.0); Mean Corpuscular Hemoglobin 31.9 pg (28.0-32.0); Mean Corpuscular Hgb Conc. 33.1 g/dL (32.0-36.0); Mean Corpuscular Volume 96.5 fL (80.0-100.0); Monocytes # (auto) 0.5 10 ^3/uL (0-1.3); Monocytes % (auto) 8.2 % (0.0-12.0); Neutrophils # (auto) 4.6 10 ^3/uL (1.6-8.6); Neutrophils % (auto) 71.7 % (37.0-80.0); Nucleated Red Blood Cells % 0.1 %; Platelet Count (auto) 193 10^3/uL (140-450); Red Blood Cells 2.83 10^6/uL (4.0-5.20); Red Cell Distribution Width 15.2 % (11.8-14.3); White Blood Cell 6.3 10^3/uL (4.4-10.8)
[2024-09-13 06:56] LABS: Anion Gap 8 (5-15); Carbon Dioxide 21 mmol/L (20-31); Potassium 3.7 mmol/L (3.5-5.1); Sodium 143 mmol/L (136-145)
[2024-09-13 06:58] LABS: Calcium 8.6 mg/dL (8.7-10.4); Chloride 114 mmol/L (98-107)
[2024-09-13 07:02] LABS: Blood Urea Nitrogen 11 mg/dL (9-23); Glucose 89 mg/dL (74-106)
[2024-09-13] MEDS ORDERED: SODIUM CHLORIDE LOCK 10 ML ONE (09:12)
[2024-09-13] MEDS ORDERED: NALOXONE HCL 0.4 MG/ML VIAL ONE (09:12)
[2024-09-13] MEDS ORDERED: FLUMAZENIL 0.1 MG/ML INJ 10ML MDV IV ONE (09:12)
--- NOTE | 2024-09-13 10:40 | ECG ---
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
[2024-09-13] MEDS: LIDOCAINE VISCOUS 2% 15ML UD ONE (13:45)
[2024-09-13] MEDS: MIDAZOLAM HCL 5 MG/ML-1ML VIAL ONE (13:47)
[2024-09-13] MEDS: fentaNYL CITRATE 100 MCG/2 ML VL ONE (13:47)
[2024-09-13] MEDS: diphenhdrAMINE HCL 50 MG/1 ML VL ONE (13:47)
--- NOTE | 2024-09-13 14:30 | DVHOP2 ---
Operative Report DATE OF OPERATION: 09/13/24 PROCEDURE: Upper Endoscopy with biopsy. PREOPERATIVE INDICATION: The patient is a 74 -year-old female undergoing endoscopy for melena anemia POSTOPERATIVE DIAGNOSES: 1. 6 cm sliding-type hiatal hernia with the Ge's erosions within the hiatal hernia sac at the diaphragmatic impingement 2. Minimal gastritis otherwise normal examination up to the 2nd and 3rd part of the duodenal PROCEDURE PERFORMED BY: Mason Sánchez GI NURSE: Juanita SCOPE: Olympus videoendoscope. ASA CLASS: 2. PREOPERATIVE MEDICATIONS: Versed 1 mg, Fentanyl 25 mcg, Benadryl 50 mg I administered moderate sedation throughout this _10_ minutes procedure. An independent trained observer pushed medications at my direction, and monitored the patient's level of consciousness and physiological status throughout. PROCEDURE IN DETAIL: After obtaining an informed consent, the patient was placed on left lateral decubitus position. The patient was then sedated with the above medications. A bite block was placed between her teeth. The endoscope was then passed through the oropharynx, into the esophagus, and through the stomach and pylorus up to the second and third part of the duodenum. The endoscope was then withdrawn. The 2nd and 3rd part of the duodenum and the duodenal bulb were normal. The pre-pyloric area and antrum showed mild antral gastritis. On retroflexion and straight on view the patient had a hiatal hernia. Duodenal and gastric biopsies were obtained. The endoscope was then withdrawn into the distal esophagus where she had a 6 cm sliding-type hiatal hernia with slight angulation of the distal esophagus above the hiatal hernia There were some Ge's linear erosions within the hiatal hernia sac at the diaphragmatic impingement. The remaining distal and proximal esophagus and oropharynx were unremarkable The patient tolerated the procedure well without difficulty. COMPLICATIONS : None SPECIMENS: Duodenal biopsy Gastric biopsies DISPOSITION: Transfer back to the floor Stable PLAN: 1. Await for biopsy result 2. Will place pt on Protonix 40 mg bid 3. Carafate 1 g p.o. twice a day 4. DC aspirin NSAIDs smoking alcohol 5. Outpatient follow up with me in 4-6 weeks to review results and discuss further management MASON SÁNCHEZ MD Sep 13, 2024 14:30
[2024-09-13] MEDS ORDERED: PANT40TA2 PO (15:52)
[2024-09-13] MEDS ORDERED: SUCR1SUS26 PO (15:52)
--- NOTE | 2024-09-13 15:55 | DVHDS2 ---
Discharge Summary Date of Admission Sep 10, 2024 at 19:20 Date of Discharge: Sep 13, 2024 Labs/Diagnostic Data: Laboratory Results Test 09/13/24 06:13 09/11/24 15:22 09/10/24 18:00 09/10/24 17:39 White Blood Count 6.3 10^3/uL (4.4-10.8) Red Blood Count 2.83 10^6/uL (4.0-5.20) Hemoglobin 9.0 g/dL (12.2-16.2) Hematocrit 27.3 % (36.0-46.0) Mean Corpuscular Volume 96.5 fL (80.0-100.0) Mean Corpuscular Hemoglobin 31.9 pg (28.0-32.0) Mean Corpuscular Hemoglobin Concent 33.1 g/dL (32.0-36.0) Red Cell Distribution Width 15.2 % (11.8-14.3) Platelet Count 193 10^3/uL (140-450) Mean Platelet Volume 8.1 fL (6.9-10.8) Neutrophils (%) (Auto) 71.7 % (37.0-80.0) Lymphocytes (%) (Auto) 18.7 % (10.0-50.0) Monocytes (%) (Auto) 8.2 % (0.0-12.0) Eosinophils (%) (Auto) 0.8 % (0.0-7.0) Basophils (%) (Auto) 0.6 % (0.0-2.0) Neutrophils # (Auto) 4.6 10 ^3/uL (1.6-8.6) Lymphocytes # (Auto) 1.2 10 ^3/uL (0.4-5.4) Monocytes # (Auto) 0.5 10 ^3/uL (0-1.3) Eosinophils # (Auto) 0 10 ^3/uL (0-0.8) Basophils # (Auto) 0 10 ^3/uL (0-0.2) Nucleated Red Blood Cells 0.1 % Sodium Level 143 mmol/L (136-145) Potassium Level 3.7 mmol/L (3.5-5.1) Chloride Level 114 mmol/L (98-107) Carbon Dioxide Level 21 mmol/L (20-31) Anion Gap 8 (5-15) Blood Urea Nitrogen 11 mg/dL (9-23) Creatinine 0.55 mg/dL (0.550-1.02) Glomerular Filtration Rate Calc 97 mL/min (>90) BUN/Creatinine Ratio 20.0 (10.0-20.0) Serum Glucose 89 mg/dL (74-106) Calcium Level 8.6 mg/dL (8.7-10.4) Stool Occult Blood Positive (Negative) Stool Occult Blood Sample #3 (Negative) Urine Color Light-yellow (Yellow) Urine Clarity Clear (Clear) Urine pH 6.5 (5.0-9.0) Urine Specific [place] > 1.050 (1.001-1.035) Urine Protein Trace (Negative) Urine Ketones Trace (Negative) Urine Blood Negative /uL (Negative) Urine Nitrite Negative (Negative) Urine Bilirubin Negative (Negative) Urine Urobilinogen Normal mg/dL (Negative) Urine Leukocyte Esterase Negative /uL (Negative) Urine RBC 3 /hpf (0 - 4) Urine Microscopic WBC 1 /HPF (0-5) Urine Squamous Epithelial Cells Few /hpf (<5) Urine Bacteria None seen /hpf (None Seen) Urine Glucose Normal mg/dL (Normal) Troponin I High Sensitivity 4 ng/L (</=34) Test 09/10/24 15:27 Prothrombin Time 11.2 sec (9.3-11.8) Prothrombin Time INR 1.06 (0.9-1.15) Activated Partial Thromboplast Time 26.2 SEC (24.5-34.5) Lactic Acid Level 1.7 mmol/L (0.4-2.0) Total Bilirubin 0.3 mg/dL (0.2-1.0) Aspartate Amino Transferase (AST) 14 U/L (13-40) Alanine Aminotransferase (ALT) 20 U/L (7-40) Alkaline Phosphatase 81 U/L (46-116) Total Protein 6.3 g/dL (5.7-8.2) Albumin 4.3 g/dL (3.2-4.8) Other Laboratory Tests 09/13/24 06:13 Brief Hx & Hospital Course: 74-year-old female with a known history of COPD, history of tobacco use disorder 40 pack-year history quit two years ago, hypertension initially presented to the hospital with a black stool as well as hematemesis found to have acute anemia with suspected GI bleed. Patient does not give me history of taking ibuprofen here and there 800 mg once or twice a day for chronic pain. Patient underwent EGD which shows evidence of Ge lesions in the hiatus hernia pouch. GI recommended Protonix and Carafate which will be prescribed. Patient was recommended to avoid aspirin ibuprofen Advil or any other NSAIDs as well as smoking alcohol if any. Patient is currently stable to be discharged. Condition at Discharge: Stable Final Diagnosis/Problems List 74-year-old female with a known history of COPD, history of tobacco use disorder 40 pack-year history quit two years ago, hypertension initially presented to the hospital with a black stool as well as hematemesis with a black stuff found to have 1. Acute anemia with suspected GI bleed 2. Black tarry stools rule out upper GI bleed 3. COPD not in exacerbation 4. Previous history of tobacco use disorder Discharge Disposition: Home SNF Discharge Will this Physician continue t: No Discharge Instruct/Medications Diet: Cardiac 2g Na,low cholest Activity: No Restrictions, As Tolerated Follow Up/Referral: Follow up with the PCP in 1-2 weeks Follow up with the GI doctor Ana Sánchez in 1-2 weeks Medications: Protonix, Carafate as prescribed Discharge Statement: "Patient was advised to return to the ER or call 911 if any headaches, dizziness, shortness of breath, chest pain, abdominal pain, bleeding, fevers, or worsening of medical condition. Patient was counseled about treatment plan, medications, possible side effects, patientverbalized understanding. All questions were answered to the best of my ability. This discharge took greater then 30 minutes in planning, reviewing documentation, counseling the patient, and discussing with other team members." ASSESSMENT ASSESSMENT Assessment 74-year-old female with a known history of COPD, history of tobacco use disorder 40 pack-year history quit two years ago, hypertension initially presented to the hospital with a black stool as well as hematemesis with a black stuff found to have 1. Acute anemia with suspected GI bleed 2. Black tarry stools rule out upper GI bleed 3. COPD not in exacerbation 4. Previous history of tobacco use disorder Date of Service: Sep 13, 2024 Billing Provider: RACHEL HUDSON MD Common Visit Codes: NOT BILLABLE RACHEL HUDSON MD Sep 13, 2024 15:55
== END 2024-09-13 18:30 | disposition home or self-care (01) | DRG 392 ==
LOC: EDBD 15:04 → ER 15:25 → OVERFLOW 19:20 → TELE-CENTR 19:37
PROVIDERS: ADMIT Nurse Practitioner Family; ATTEND Nurse Practitioner Family
PROC: 0DB68ZX Excision of Stomach, Via Natural or Artificial Opening Endoscopic, Diagnostic (ICD-10-PCS; 2024-09-13)
PROC: 0DB98ZX Excision of Duodenum, Via Natural or Artificial Opening Endoscopic, Diagnostic (ICD-10-PCS; principal; 2024-09-13 13:40)
DX: K44.9 Diaphragmatic hernia without obstruction or gangrene (principal); D62 Acute posthemorrhagic anemia; J44.9 Chronic obstructive pulmonary disease, unspecified; F17.210 Nicotine dependence, cigarettes, uncomplicated; I10 Essential (primary) hypertension; E78.5 Hyperlipidemia, unspecified; E27.8 Other specified disorders of adrenal gland; Z96.641 Presence of right artificial hip joint; Z82.3 Family history of stroke; Z79.899 Other long term (current) drug therapy
CPT/HCPCS: 36415; 43239; 71045; 74177; 80048; 80053; 81001; 82270; 83605; 84484; 85014; 85018; 85025; 85610; 85730; 86850; 86900; 86901; 93005; 96361; 96374; 97110; 97163; G0378; J2250; J2405; J2470